=== PATIENT | male | born 1990 | race Caucasian/White ===

== ENCOUNTER 2017-11-29 19:20 | Emergency (ER) | payer MEDICAID ==
[~2017-11-29] VITALS: Ht 160 cm; Wt 79.0 kg
[2017-11-29 19:26] VITALS: BP 154/81; Ht 160 cm; Wt 79.0 kg
== END 2017-11-29 20:30 | disposition home or self-care (01) ==
LOC: ED 19:20
DX: I88.9 Nonspecific lymphadenitis, unspecified (principal)

== ENCOUNTER 2017-12-25 13:41 | Emergency (ER) | payer MEDICAID ==
[~2017-12-25] VITALS: Ht 162.6 cm; Wt 77.6 kg
[2017-12-25 13:48] VITALS: Ht 162.6 cm; Wt 77.6 kg
[2017-12-25 15:06] VITALS: BP 147/76
== END 2017-12-25 15:06 | disposition home or self-care (01) ==
LOC: ED 13:41
DX: M54.5 Low back pain (principal)

== ENCOUNTER 2018-04-23 19:01 | Emergency (ER) | payer SELFPAY ==
[~2018-04-23] VITALS: Ht 160 cm; Wt 78.2 kg
[2018-04-23 19:27] VITALS: Ht 160 cm; Wt 78.2 kg
[2018-04-23 20:49] LABS: BASOPHIL % 0.2 % (0-2); PLATELET COUNT 285 x10^3mcL (130-400); RED CELL DISTRIBUTION WIDTH 13.5 % (11.5-14.5)
[2018-04-23 20:50] LABS: UA SPECIFIC GRAVITY >=1.030 (1.005-1.035); microscopic required? YES; urine erythrocyte 1+ (NEGATIVE)
[2018-04-23 20:58] LABS: CALCIUM 9.4 mg/dL (8.5-10.1); CARBON DIOXIDE 26.5 mmol/L (21-32); CHLORIDE SERUM 101 mmol/L (98-107); CREATININE SERUM 0.9 mg/dL (0.7-1.3); GFR1 > 60 mL/min; GLUCOSE SERUM 94 mg/dL (74-106); POTASSIUM SERUM 4.1 mmol/L (3.5-5.1); SODIUM SERUM 139 mmol/L (136-145)
[2018-04-23 21:03] LABS: ALBUMIN 4.1 g/dL (3.4-5.0); ALKALINE PHOSPHATASE 95 U/L (46-116); ALT/SGPT 49 U/L (16-63); AST/SGOT 34 U/L (15-37); BILIRUBIN TOTAL 0.7 mg/dL (0.20-1.00); LIPASE 115 IU/L (73-393)
[2018-04-23 21:04] LABS: TOTAL PROTEIN, SERUM 8.3 g/dL (6.4-8.2)
[2018-04-23 23:31] VITALS: BP 127/86
== END 2018-04-23 23:31 | disposition home or self-care (01) ==
LOC: ED 19:01
PROVIDERS: Emergency Medicine
DX: R10.13 Epigastric pain (principal); R31.9 Hematuria, unspecified; M54.6 Pain in thoracic spine; R19.7 Diarrhea, unspecified
CPT/HCPCS: 36415; J1885

== ENCOUNTER 2018-11-15 21:00 | Emergency (ER) | payer MEDICAID ==
[~2018-11-15] VITALS: Ht 157.5 cm; Wt 81.8 kg
[2018-11-15 22:12] VITALS: BP 161/95
== END 2018-11-15 22:13 | disposition home or self-care (01) ==
LOC: ED 21:00
DX: S51.011A Laceration without foreign body of right elbow, initial encounter (principal); W22.8XXA Striking against or struck by other objects, initial encounter; Y93.89 Activity, other specified; Y92.89 Other specified places as the place of occurrence of the external cause; Y99.8 Other external cause status
CPT/HCPCS: 90715